=== PATIENT | male | born 1970 | race Caucasian/White ===

== ENCOUNTER → 2020-03-27 09:39 | Outpatient (BNVA) | payer OTHER, SELFPAY | PROVIDERS: PCP Internal Medicine; Referring Provider Internal Medicine; Visit Provider Internal Medicine Pulmonary Disease | DX: Z76.89 Persons encountering health services in other specified circumstances (principal) ==

== ENCOUNTER → 2020-05-26 09:47 | Outpatient (BNVA) | payer OTHER, SELFPAY | PROVIDERS: PCP Internal Medicine; Visit Provider Urology | DX: N13.9 Obstructive and reflux uropathy, unspecified (principal); Z79.899 Other long term (current) drug therapy | CPT/HCPCS: 81002 ==

== ENCOUNTER → 2020-06-21 12:50 | Outpatient (BNVA) | payer OTHER, SELFPAY | PROVIDERS: PCP Internal Medicine; Visit Provider Internal Medicine Pulmonary Disease ==

== ENCOUNTER → 2020-11-29 10:10 | Outpatient (BNVA) | payer OTHER, SELFPAY | PROVIDERS: PCP Internal Medicine; Visit Provider Internal Medicine Pulmonary Disease ==

== ENCOUNTER → 2021-01-30 14:37 | Outpatient (BNVA) | payer OTHER, SELFPAY | PROVIDERS: PCP Internal Medicine; Visit Provider Internal Medicine Pulmonary Disease ==

== ENCOUNTER → 2021-04-30 14:31 | Outpatient (BNVA) | payer OTHER, SELFPAY | PROVIDERS: PCP Internal Medicine; Visit Provider Internal Medicine Pulmonary Disease ==

== ENCOUNTER → 2021-07-24 10:50 | Outpatient (BNVA) | payer OTHER, SELFPAY | PROVIDERS: PCP Internal Medicine; Visit Provider Internal Medicine Pulmonary Disease | DX: J44.9 Chronic obstructive pulmonary disease, unspecified (principal); D86.9 Sarcoidosis, unspecified; F17.210 Nicotine dependence, cigarettes, uncomplicated; F12.90 Cannabis use, unspecified, uncomplicated | CPT/HCPCS: 99212 ==

== ENCOUNTER 2022-01-06 13:00 | Outpatient (REF) | payer OTHER, SELFPAY ==
--- NOTE | 2022-01-06 13:48 | PFT_ITS ---
INDICATION: COPD. SPIROMETRY: FEV1 to FVC of 80% with an FEV1 of 3.59 L, which is 82% predicted; an FVC of 4.5, which is 79% predicted. Post bronchodilators, the patient had a significant improvement in both the FVC and the FEV1. Also to note, the FEF25/75 decreased down to 59% predicted, suggesting of significant small airways disease. LUNG VOLUMES: Total lung capacity 95% predicted with a residual volume 122% predicted. DIFFUSION CAPACITY: DLCO 72% predicted. COMPARISONS: None. INTERPRETATION: No obstructive, nor restrictive ventilatory defects noted. Although, the patient had significant response to bronchodilators and significant evidence of small airways disease, which could be appreciated with asthma. Lung volumes are within normal limits except for increase in the residual volume suggestive of air trapping due to the small airways disease. There is also mild diffusion impairment. If asthma is in the differential, methacholine challenge may be helpful in assessing for hyper-reactive airways, otherwise clinical correlation warranted. MD KIRBY Amado/MODL / [id number]
== END 2022-01-06 13:01 | disposition home or self-care (01) ==
LOC: HO.RESP 13:00
PROVIDERS: PCP Internal Medicine; Visit Provider Internal Medicine Pulmonary Disease
DX: J44.9 Chronic obstructive pulmonary disease, unspecified (principal)
CPT/HCPCS: 94060; 94727; 94729

== ENCOUNTER 2022-01-08 10:37 | Outpatient (REF) | payer OTHER, SELFPAY ==
[2022-01-08 10:49] LABS: MANUAL DIFF FLAG NO
[2022-01-08 12:12] LABS: Basophils Absolute Auto 0.1 X10*3/uL (0.0-0.2); Basophils Percent Auto 0.6 % (0-2); Eosinophils Absolute Auto 0.4 X10*3/uL (0.0-0.4); Eosinophils Percent Auto 4.7 % (0-4); Hematocrit 46.8 % (42.0-52.0); Imm Gran Abs Auto 0.03 X10*3/uL (0.00-0.03); Imm Gran Pct Auto 0.4 % (0.0-0.4); Lymphocytes Percent Auto 35.5 % (20-40); Mean Corpuscular HGB Conc 32.1 g/dl (31.0-36.0); Mean Corpuscular Hemoglobin 28.9 pg (27.0-33.0); Mean Corpuscular Volume 90.2 fL (80.0-98.0); Mean Platelet Volume 10.8 fL (9.4-12.4); Monocytes Absolute Auto 0.5 X10*3/uL (0.1-1.2); Monocytes Percent Auto 6.2 % (2-11); Neutrophils Absolute Auto 4.5 x10*3/uL (2.0-8.3); Neutrophils Percent Auto 52.6 % (45-73); Platelet Count 281 X10*3/uL (160-400); Red Blood Count 5.19 X10*6/uL (4.60-5.80); Red Cell Distribution Width 13.3 % (11.0-16.0); White Blood Count 8.5 X10*3/uL (4.8-10.8)
== END 2022-01-08 10:38 | disposition home or self-care (01) ==
LOC: HO.LAB 10:37
PROVIDERS: PCP Internal Medicine; Visit Provider Internal Medicine Pulmonary Disease
DX: Z91.09 Other allergy status, other than to drugs and biological substances (principal)
CPT/HCPCS: 36415; 82785; 85025; 86003

== ENCOUNTER → 2022-07-16 09:36 | Outpatient (BNVA) | payer OTHER, SELFPAY | PROVIDERS: PCP Internal Medicine; Visit Provider Internal Medicine Pulmonary Disease | DX: Z13.89 Encounter for screening for other disorder (principal) ==

== ENCOUNTER → 2022-08-27 08:44 | Outpatient (BNVA) | payer OTHER, SELFPAY | PROVIDERS: PCP Internal Medicine; Visit Provider Internal Medicine Pulmonary Disease ==

== ENCOUNTER 2022-12-11 08:28 | Outpatient (AMB) | payer OTHER, SELFPAY ==
--- NOTE | 2022-12-11 08:47 | A.OFFVIS_ITS ---
Intake Vital Signs 12/11/22 08:48 Height 6 ft 2 in Weight 235 lb 14.314 oz BMI 30.3 BP 132/86 Blood Pressure Location Lt brachial Position Sitting Pulse 87 Pulse Source Pulse Oximeter Pulse Oximetry (%) 97 Oxygen Delivery Method Room Air Intake Visit Reasons: Asthma Allergies No Known Allergies Allergy (Verified 12/11/22 08:52) HPI Asthma HPI Details 52-year-old gentleman, active 40+ pack-year tobacco and marijuana smo ker, with underlying history of rheumatoid arthritis followed for COPD, asthma, environmental allergies, and sarcoidosis.? He continues to use Trelegy 100 and albuterol MDI, with reasonable control of his underlying symptoms.? He denies recent exacerbations. [facility] Social History (Updated 12/11/22 @ 08:53 by BEBE Wild) Patient Tobacco Use Status: Current everyday Tobacco user Tobacco use type: Cigarette Cigarette Packs Per Day: 1 Review of Systems Const Denies daytime sleepiness, Denies excessive sweating, Denies fatigue, Denies fever(s), Denies lethargy, Denies malaise, Denies night sweats, Denies snoring and Denies weight loss Eyes Denies blurry vision and Denies itchy eyes ENT Denies nasal congestion, Denies post nasal drip, Denies sinus pain, Denies sinus pressure and Denies other ( Thrush) Card Denies chest pain, Denies pedal edema, Denies dyspnea, Denies orthopnea and Denies paroxysmal nocturnal dyspnea Resp Denies cough, Denies hemoptysis, Denies excessive phlegm production, Denies dyspnea, Denies snoring and Denies wheezing GI Denies abdominal pain and Denies heartburn Musc Denies myalgias, Denies arthralgias and Denies joint swelling Skin/Breast Denies rash Neuro Denies memory loss and Denies seizure-like activity Psych Denies abnormal sleep pattern, Denies anxiety and Denies memory loss Endo Denies excessive sweating, Denies fatigue and Denies heat intolerance Papo/Lymph Denies easy bruising Aller/Immun Denies itchy eyes, Denies seasonal rhinorrhea and Denies wheezing Physical Exam Vital Signs: Last Vital Signs Pulse 87 12/11/22 08:48 BP 132/86 12/11/22 08:48 Pulse Ox 97 12/11/22 08:48 Oxygen Delivery Method Room Air 12/11/22 08:48 BMI result Body Mass Index 30.3 Const General: no acute distress and alert Nutritional Appearance: not obese Orientation/consciousness: Other orientation findings ( oriented) HEENT Head: Yes atraumatic Eyes General: appearance normal, both eyes and all related structures Sclerae: sclerae normal EOM: EOMs intact bilaterally Neck Neck: Yes supple Lymphatic: no lymphadenopathy noted Resp Effort & Inspection: normal respiratory effort and no use of accessory muscles Auscultation: clear to auscultation bilaterally Cardio Rate: regular rate Rhythm: regular rhythm Heart sounds: no gallops, no murmurs and no rubs Skin General skin exam: other ( warm) Extrem General: No clubbing, No cyanosis and No edema Assessment & Plan Assessment & Plan (1) Sarcoidosis: Code(s): D86.9 - Sarcoidosis, unspecified Plan: No recent exacerbations. Continue to monitor clinically. (2) Asthma: Code(s): J45.909 - Unspecified asthma, uncomplicated Plan: Well controlled on trilogy and albuterol MDI. Continue current regimen. (3) Environmental allergies: Code(s): Z91.09 - Other allergy status, other than to drugs and biological substances Plan: If started been controlled on inhaled corticosteroid, will consider starting on immunologic therapy. Coding Level of Care Code Est Pt Level 4 (73640) Diagnoses Sarcoidosis D86.9 Asthma J45.909 Environmental allergies Z91.09
[2022-12-11 08:48] VITALS: BP 132/86; PULSE 87; O2SAT 97; BMI 30.3
== END 2022-12-11 09:08 | disposition home or self-care (01) ==
PROVIDERS: PCP Internal Medicine; Visit Provider Internal Medicine Pulmonary Disease
DX: D86.9 Sarcoidosis, unspecified (principal); J45.909 Unspecified asthma, uncomplicated; Z91.09 Other allergy status, other than to drugs and biological substances
CPT/HCPCS: 99214

== ENCOUNTER → 2022-12-11 08:28 | Outpatient (BNVA) | payer OTHER, SELFPAY | PROVIDERS: PCP Internal Medicine; Visit Provider Internal Medicine Pulmonary Disease ==

== ENCOUNTER 2023-01-14 08:32 | Outpatient (AMB) | payer OTHER, SELFPAY ==
[2023-01-14 08:55] VITALS: BP 127/84; PULSE 101; O2SAT 96; BMI 30.7
--- NOTE | 2023-01-14 08:55 | MHC.OFFVIS ---
Intake Vital Signs 01/14/23 08:55 Height 6 ft 2 in Weight 239 lb 3.225 oz BMI 30.7 BP 127/84 Blood Pressure Location Lt brachial Position Sitting Pulse 101 H Pulse Source Doppler Pulse Oximetry (%) 96 Oxygen Delivery Method Room Air Intake Visit Reasons: Asthma Allergies No Known Allergies Allergy (Verified 01/14/23 08:57) HPI Asthma HPI Details 52-year-old gentleman, active 40+ pack-year tobacco and marijuana smoker, with underlying history of rheumatoid arthritis followed for COPD, asthma, environmental allergies, and sarcoidosis.? He continues to use Trelegy 100 and albuterol MDI, with reasonable control of his underlying symptoms.? He denies recent exacerbations. 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 [facility] Social History Patient Tobacco Use Status: Current everyday Tobacco user Tobacco use type: Cigarette Cigarette Packs Per Day: 1 Review of Systems Const Denies daytime sleepiness, Denies excessive sweating, Denies fatigue, Denies fever(s), Denies lethargy, Denies malaise, Denies night sweats, Denies snoring and Denies weight loss Eyes Denies blurry vision and Denies itchy eyes ENT Denies nasal congestion, Denies post nasal drip, Denies sinus pain, Denies sinus pressure and Denies other ( Thrush) Card Denies chest pain, Denies pedal edema, Denies dyspnea, Denies orthopnea and Denies paroxysmal nocturnal dyspnea Resp Denies cough, Denies hemoptysis, Denies excessive phlegm production, Denies dyspnea, Denies snoring and Denies wheezing GI Denies abdominal pain and Denies heartburn Musc Denies myalgias, Denies arthralgias and Denies joint swelling Skin/Breast Denies rash Neuro Denies memory loss and Denies seizure-like activity Psych Denies abnormal sleep pattern, Denies anxiety and Denies memory loss Endo Denies excessive sweating, Denies fatigue and Denies heat intolerance Papo/Lymph Denies easy bruising Aller/Immun Denies itchy eyes, Denies seasonal rhinorrhea and Denies wheezing Physical Exam Vital Signs: Last Vital Signs Pulse 101 H 01/14/23 08:55 BP 127/84 01/14/23 08:55 Pulse Ox 96 01/14/23 08:55 Oxygen Delivery Method Room Air 01/14/23 08:55 BMI result Body Mass Index 30.7 Const General: no acute distress and alert Nutritional Appearance: not obese Orientation/consciousness: Other orientation findings ( oriented) HEENT Head: Yes atraumatic Eyes General: appearance normal, both eyes and all related structures Sclerae: sclerae normal EOM: EOMs intact bilaterally Neck Neck: Yes supple Lymphatic: no lymphadenopathy noted Resp Effort & Inspection: normal respiratory effort and no use of accessory muscles Auscultation: clear to auscultation bilaterally Cardio Rate: regular rate Rhythm: regular rhythm Heart sounds: no gallops, no murmurs and no rubs Skin General skin exam: other ( warm) Extrem General: No clubbing, No cyanosis and No edema Assessment & Plan Assessment & Plan (1) Sarcoidosis: Code(s): D86.9 - Sarcoidosis, unspecified Plan: No recent exacerbations. Continue to monitor clinically. (2) Asthma: Code(s): J45.909 - Unspecified asthma, uncomplicated Plan: Well controlled on current regimen of Trelegy and albuterol MDI. Continue current regimen. (3) Environmental allergies: Code(s): Z91.09 - Other allergy status, other than to drugs and biological substances Plan: Well controlled on Dymista. If symptoms worsen, will consider immunologic therapy. Coding Level of Care Code Est Pt Level 4 (76680) Diagnoses Sarcoidosis D86.9 Asthma J45.909 Environmental allergies Z91.09
== END 2023-01-14 09:27 | disposition home or self-care (01) ==
PROVIDERS: PCP Internal Medicine; Visit Provider Internal Medicine Pulmonary Disease
DX: D86.9 Sarcoidosis, unspecified (principal); J45.909 Unspecified asthma, uncomplicated; Z91.09 Other allergy status, other than to drugs and biological substances
CPT/HCPCS: 99214

== ENCOUNTER → 2023-01-14 08:32 | Outpatient (BNVA) | payer OTHER, SELFPAY | PROVIDERS: PCP Internal Medicine; Visit Provider Internal Medicine Pulmonary Disease ==

== ENCOUNTER 2023-05-21 08:35 | Outpatient (AMB) | payer OTHER, SELFPAY ==
[2023-05-21 08:51] VITALS: BP 122/77; PULSE 96; O2SAT 95; BMI 30.2
--- NOTE | 2023-05-21 08:51 | A.OFFVIS_ITS ---
Intake Vital Signs 05/21/23 08:51 Height 6 ft 2 in Weight 235 lb BMI 30.2 BP 122/77 Blood Pressure Location Rt brachial Position Sitting Pulse 96 Pulse Source Doppler Pulse Oximetry (%) 95 Oxygen Delivery Method Room Air Intake Visit Reasons: Asthma Allergies No Known Allergies Allergy (Verified 05/21/23 08:57) HPI Asthma HPI Details 52-year-old gentleman, active 40+ pack-y ear tobacco and marijuana smoker, with underlying history of rheumatoid arthritis followed for COPD, asthma, environmental allergies, and sarcoidosis.? He continues to use Trelegy 100 and albuterol MDI, with reasonable control of his underlying symptoms.? Does complain of an acute exacerbation symptomatic with cough productive of brown sputum. [facility] Social History Patient Tobacco Use Status: Current everyday Tobacco user Tobacco use type: Cigarette Cigarette Packs Per Day: 1 Review of Systems Const Denies daytime sleepiness, Denies excessive sweating, Denies fatigue, Denies fever(s), Denies lethargy, Denies malaise, Denies night sweats, Denies snoring and Denies weight loss Eyes Denies blurry vision and Denies itchy eyes ENT Denies nasal congestion, Denies post nasal drip, Denies sinus pain, Denies sinus pressure and Denies other ( Thrush) Card Denies chest pain, Denies pedal edema, Denies dyspnea, Denies orthopnea and Denies paroxysmal nocturnal dyspnea Resp Reports cough, Denies hemoptysis, Reports excessive phlegm production, Denies dyspnea, Denies snoring and Denies wheezing GI Denies abdominal pain and Denies heartburn Musc Denies myalgias, Denies arthralgias and Denies joint swelling Skin/Breast Denies rash Neuro Denies memory loss and Denies seizure-like activity Psych Denies abnormal sleep pattern, Denies anxiety and Denies memory loss Endo Denies excessive sweating, Denies fatigue and Denies heat intolerance Papo/Lymph Denies easy bruising Aller/Immun Denies itchy eyes, Denies seasonal rhinorrhea and Denies wheezing Physical Exam Vital Signs: Last Vital Signs Pulse 96 05/21/23 08:51 BP 122/77 05/21/23 08:51 Pulse Ox 95 05/21/23 08:51 Oxygen Delivery Method Room Air 05/21/23 08:51 BMI result Body Mass Index 30.2 Const General: no acute distress and alert Nutritional Appearance: not obese Orientation/consciousness: Other orientation findings ( oriented) HEENT Head: Yes atraumatic Eyes General: appearance normal, both eyes and all related structures Sclerae: sclerae normal EOM: EOMs intact bilaterally Neck Neck: Yes supple Lymphatic: no lymphadenopathy noted Resp Effort & Inspection: normal respiratory effort and no use of accessory muscles Auscultation: clear to auscultation bilaterally Cardio Rate: regular rate Rhythm: regular rhythm Heart sounds: no gallops, no murmurs and no rubs Skin General skin exam: other ( warm) Extrem General: No clubbing, No cyanosis and No edema Assessment & Plan Assessment & Plan (1) Sarcoidosis: Code(s): D86.9 - Sarcoidosis, unspecified Plan: No recent exacerbations. Continue to monitor clinically. (2) Asthma: Code(s): J45.909 - Unspecified asthma, uncomplicated Plan: Baseline controlled on trilogy and albuterol MDI. Continue current regimen. Now with bronchitic exacerbation. Will treat with a course of Levaquin. (3) Environmental allergies: Code(s): Z91.09 - Other allergy status, other than to drugs and biological substances Plan: At this time patient is not interested in immunologic therapy. Continue on Dymista. Medications: New levofloxacin 750 mg PO DAILY 7 tabs 0RF Coding Level of Care Code Est Pt Level 4 (94283) Diagnoses Sarcoidosis D86.9 Asthma J45.909 Environmental allergies Z91.09
== END 2023-05-21 09:15 | disposition home or self-care (01) ==
PROVIDERS: PCP Internal Medicine; Visit Provider Internal Medicine Pulmonary Disease
DX: D86.9 Sarcoidosis, unspecified (principal); J45.909 Unspecified asthma, uncomplicated; Z91.09 Other allergy status, other than to drugs and biological substances
CPT/HCPCS: 99214

== ENCOUNTER → 2023-05-21 08:35 | Outpatient (BNVA) | payer OTHER, SELFPAY | PROVIDERS: PCP Internal Medicine; Visit Provider Internal Medicine Pulmonary Disease ==

== ENCOUNTER 2023-07-01 08:40 | Outpatient (AMB) | payer OTHER, SELFPAY ==
--- NOTE | 2023-07-01 09:02 | A.OFFVIS_ITS ---
Intake Vital Signs 07/01/23 09:04 Height 6 ft 2 in Weight 238 lb 1.588 oz BMI 30.6 BP 140/87 H Blood Pressure Location Rt brachial Pulse 99 Pulse Source Doppler Pulse Oximetry (%) 95 Oxygen Delivery Method Room Air Intake Visit Reasons: Asthma Allergies No Known Allergies Allergy (Verified 07/01/23 09:09) HPI Asthma HPI Details 53-year-old gentleman, active 40+ pack-y ear tobacco and marijuana smoker, with underlying history of rheumatoid arthritis followed for COPD, asthma, environmental allergies, and sarcoidosis.? He continues to use Trelegy 100 and albuterol MDI, with reasonable control of his underlying symptoms. Recent bronchitic exacerbation has resolved. Now he is essentially at baseline. [facility] Social History Patient Tobacco Use Status: Current everyday Tobacco user Tobacco use type: Cigarette Cigarette Packs Per Day: 1 Review of Systems Const Denies daytime sleepiness, Denies excessive sweating, Denies fatigue, Denies fever(s), Denies lethargy, Denies malaise, Denies night sweats, Denies snoring and Denies weight loss Eyes Denies blurry vision and Denies itchy eyes ENT Denies nasal congestion, Denies post nasal drip, Denies sinus pain, Denies sinus pressure and Denies other ( Thrush) Card Denies chest pain, Denies pedal edema, Denies dyspnea, Denies orthopnea and Denies paroxysmal nocturnal dyspnea Resp Denies cough, Denies hemoptysis, Denies excessive phlegm production, Denies dyspnea, Denies snoring and Denies wheezing GI Denies abdominal pain and Denies heartburn Musc Denies myalgias, Denies arthralgias and Denies joint swelling Skin/Breast Denies rash Neuro Denies memory loss and Denies seizure-like activity Psych Denies abnormal sleep pattern, Denies anxiety and Denies memory loss Endo Denies excessive sweating, Denies fatigue and Denies heat intolerance Papo/Lymph Denies easy bruising Aller/Immun Denies itchy eyes, Denies seasonal rhinorrhea and Denies wheezing Physical Exam Vital Signs: Last Vital Signs Pulse 99 07/01/23 09:04 BP 140/87 H 07/01/23 09:04 Pulse Ox 95 07/01/23 09:04 Oxygen Delivery Method Room Air 07/01/23 09:04 BMI result Body Mass Index 30.6 Const General: no acute distress and alert Nutritional Appearance: not obese Orientation/consciousness: Other orientation findings ( oriented) HEENT Head: Yes atraumatic Eyes General: appearance normal, both eyes and all related structures Sclerae: sclerae normal EOM: EOMs intact bilaterally Neck Neck: Yes supple Lymphatic: no lymphadenopathy noted Resp Effort & Inspection: normal respiratory effort and no use of accessory muscles Auscultation: clear to auscultation bilaterally Cardio Rate: regular rate Rhythm: regular rhythm Heart sounds: no gallops, no murmurs and no rubs Skin General skin exam: other ( warm) Extrem General: No clubbing, No cyanosis and No edema Assessment & Plan Assessment & Plan (1) Sarcoidosis: Code(s): D86.9 - Sarcoidosis, unspecified Plan: No recent exacerbations. Continue to monitor clinically. (2) Asthma: Code(s): J45.909 - Unspecified asthma, uncomplicated Plan: Well controlled on Trelegy and albuterol MDI. Continue current regimen. (3) Environmental allergies: Code(s): Z91.09 - Other allergy status, other than to drugs and biological substances Plan: Reasonable control on Dymista. Continue current regimen. Medications: Refilled azelastine-fluticasone 137-50 mcg/spray administer into each nostril 1 spray intranasal BID 23 grams 3RF 30 days Coding Level of Care Code Est Pt Level 4 (88359) Diagnoses Sarcoidosis D86.9 Asthma J45.909 Environmental allergies Z91.09
[2023-07-01 09:04] VITALS: BP 140/87; PULSE 99; O2SAT 95; BMI 30.6
== END 2023-07-01 09:16 | disposition home or self-care (01) ==
PROVIDERS: PCP Internal Medicine; Visit Provider Internal Medicine Pulmonary Disease
DX: D86.9 Sarcoidosis, unspecified (principal); J45.909 Unspecified asthma, uncomplicated; Z91.09 Other allergy status, other than to drugs and biological substances
CPT/HCPCS: 99214

== ENCOUNTER → 2023-07-01 08:40 | Outpatient (BNVA) | payer OTHER, SELFPAY | PROVIDERS: PCP Internal Medicine; Visit Provider Internal Medicine Pulmonary Disease ==

== ENCOUNTER 2023-07-18 11:50 | Emergency (ER) | payer OTHER, SELFPAY ==
--- NOTE | ~2023-07-18 | XR_ITS ---
EXAMINATION: XR FINGER, RIGHT CLINICAL INFORMATION: Infected finger COMPARISON: None available. TECHNIQUE: Three views of the right third. FINDINGS: Bone alignment is normal. No fracture or dislocation. No evidence of osteomyelitis. Normal joint spaces. There is soft tissue swelling of the ulnar and dorsal third finger. There is a small 1 mm radiopaque density that projects over the ulnar and dorsal soft tissues adjacent to the distal phalanx concerning for possible soft tissue foreign body. XR/XR finger RT min 2V IMPRESSION: Soft tissue swelling of the third finger and question small soft tissue foreign body.
--- NOTE | 2023-07-18 11:53 | ED.SKABFB ---
HPI - Skin/Abscess/Foreign Bdy General Chief complaint: Wound/Laceration Stated complaint: swollen brusied finger Time Seen by Provider: 07/18/23 13:51 Source: patient Mode of arrival: ambulatory History of Present Illness HPI narrative: 53-year-old male who presents with right middle finger pain and swelling after it began on Friday after returning from [place], he went to an urgent care where he states that it was drained and he was started on an antibiotic but his finger has progressively become worse. Related Data Home Medications Medication Instructions Recorded Confirmed citalopram 10 mg tablet 10 mg PO DAILY 03/27/20 03/27/20 lisinopril 10 mg tablet 10 mg PO DAILY 03/27/20 03/27/20 Previous Rx's Medication Instructions Recorded fluticasone fur. 100 mcg-umeclid 1 ea PO DAILY #60 ea 02/17/23 62.5 mcg-vilant 25 mcg inhalat.powder (Trelegy Ellipta) levofloxacin 750 mg tablet 750 mg PO DAILY #7 tabs 05/21/23 albuterol sulfate 90 mcg/actuation 1 puff inhalation QID #6.7 ea 06/12/23 aerosol inhaler azelastine 137 mcg-fluticasone 50 1 spray intranasal BID 30 days #23 07/01/23 mcg/spray nasal spray grams amoxicillin 875 mg-potassium 1 tab PO BID 5 days #10 tabs 07/18/23 clavulanate 125 mg tablet Allergies Allergy/AdvReac Type Severity Reaction Status Date / Time No Known Allergies Allergy Verified 07/01/23 09:09 Review of Systems Review of Systems: Pertinent positives and negatives as stated in HPI [facility] Past Medical History Source: nursing notes reviewed Social History Social History Patient Tobacco Use Status: Current everyday Tobacco user Tobacco use type: Cigarette Cigarette Packs Per Day: 1 Smoked in Last 30 Days: Yes Use of substances other than those prescribed or required for medical reasons: Yes Substance Use Type: Marijuana Substance Use Frequency: Daily Advance Directives: Yes Advance Directives Information Provided: Yes Advance Directives on File: No Physical Exam Vital Signs: Vital Signs: Last Vital Signs Temp 99.5 F 07/18/23 13:46 Pulse 104 H 07/18/23 13:46 Resp 18 07/18/23 13:46 BP 155/98 H 07/18/23 13:46 Pulse Ox 95 07/18/23 13:46 O2 Del Method Room Air 07/18/23 13:46 BMI result Body Mass Index 29.8 VITAL SIGNS: Reviewed. GENERAL: Well developed, well nourished, in no acute distress. HEAD: Normocephalic/atraumatic EYES: PERRLA, EOMI LUNGS: Normal breath sounds. No adventitious sounds or accessory muscle use. SpO2<95> CARDIOVASCULAR: Regular rate and rhythm without noted murmurs ABDOMEN: Soft, non-tender, non-distended with bowel sounds. MUSCULOSKELETAL: No tenderness, deformities, or effusions noted on gross inspection. EXTREMITIES: No cyanosis, clubbing or edema. RIGHT MIDDLE FINGER: SKIN: Inspection of the skin reveals no rashes NEUROLOGIC: Alert and oriented x 4. Strength and sensation to light touch were grossly intact x 4. Course Course Course Narrative: This is an RME: Additional HPI, ROS, PE not included below will be deferred to primary provider. Patient is a 53-year-old male left-hand dominant who presents emergency department with referral from his primary care doctor's office. He presented there for re-evaluation of a right 3rd finger infection. Reportedly was seen at urgent care 3 days ago for paronychia, digital block and attempted drainage, was placed on Keflex but has worsened. Extensive swelling bruising, finger held in near complete extension, unable to flex. Plan: Labs, XR Medical Decision Making Medical Decision Making [facility] Narrative: 53-year-old male with history and clinical presentation of infected paronychia, cephalexin not able to control infection, digital block placed, small incision on the lateral aspect with copious drainage, re-application dressing and discharged on Augmentin. Patient received initial analgesics and antibiotics here in the emergency room. I reviewed all investigations and hematologic indices negative for leukocytosis/anemia or thrombocytopenia. Chemistry indices negative for SABINE/electrolyte or liver enzyme derangements. X-ray negative for bony or joint abnormality but demonstrates soft tissue swelling Differential Diagnosis Differential Diagnoses: The differential diagnosis associated with the presentation includes Please see the discussion above Admission/Observation Consideration of admission/observation: Escalation of care including admission/observation considered Please see the discussion above Lab Data [facility] Lab Attestation statement: I reviewed the patient's lab results. Please see the discussion above 07/18/23 12:37 07/18/23 12:37 Labs: Lab Results 07/18/23 07/18/23 Range/Units 12:37 14:35 WBC 10.4 (4.8-10.8) X10*3/uL RBC 5.71 (4.60-5.80) X10*6/uL Hgb 17.0 (14.0-18.0) g/dl Hct 51.4 (42.0-52.0) % MCV 90.0 (80.0-98.0) fL MCH 29.8 (27.0-33.0) pg MCHC 33.1 (31.0-36.0) g/dl RDW 13.7 (11.0-16.0) % Plt Count 261 (160-400) X10*3/uL MPV 10.1 (9.4-12.4) fL Immature Gran % (Auto) 0.3 (0.0-0.4) % Neut % (Auto) 77.3 H (45-73) % Lymph % (Auto) 13.3 L (20-40) % Rincon % (Auto) 8.0 (2-11) % Eos % (Auto) 0.7 (0-4) % Baso % (Auto) 0.4 (0-2) % Lymph # (Auto) 1.4 (1.2-4.9) X10*3/uL Rincon # (Auto) 0.8 (0.1-1.2) X10*3/uL Eos # (Auto) 0.1 (0.0-0.4) X10*3/uL Baso # (Auto) 0.0 (0.0-0.2) X10*3/uL Abs Immat Gran (auto) 0.03 (0.00-0.03) X10*3/uL Absolute Neuts (auto) 8.0 (2.0-8.3) x10*3/uL Absolute Nucleated RBC 0.000 (0.0-0.012) X10*3/uL Nucleated RBC % (auto) 0.0 (0.0-0.2) /100WBC Sodium 137 (135-145) mmol/L Potassium 3.9 (3.3-5.1) mmol/L Chloride 101 (96-108) mmol/L Carbon Dioxide 26 (22-29) mmol/L Anion Gap 14 (12-20) BUN 13 (9-16) mg/dL Creatinine 1.06 (0.5-1.4) mg/dL Estim Creat Clear Calc 103.0 Estimated GFR > 60 Random Glucose 123 H (60-115) mg/dL Lactic Acid 1.0 (0.5-2.0) mmol/L Calcium 9.7 (8.4-10.2) mg/dL Total Bilirubin 0.4 (0.0-1.0) mg/dL AST 12 (5-37) U/L ALT 15 (0-40) U/L Alkaline Phosphatase 82 (39-117) U/L Total Protein 7.7 (6.5-8.0) g/dL Albumin 4.4 (3.5-5.0) g/dL Radiology Impression Discussion of test interpretation with radiology: I have reviewed the radiologist's reading. Radiologist Impression: Please see the discussion above Procedures Abscess I/D Site: upper extremity Side (if applicable): right Local Anesthetic: lidocaine 1% Amount of anesthesia used (mL): 5 Technique: incised with blade Amount of fluid expressed (mL): 15 Sent for culture/gram staining?: No Packing used?: none Discharge Plan Discharge Clinical Impression: Finger infection Patient Disposition: Home, Self-Care Instructions: Paronychia (ED) Additional Instructions: 1. I have switched your antibiotics to Augmentin, twice a day, for 5 days. You should stop taking the other antibiotic that you were prescribed. 2. Follow-up with your primary care doctor the 1st part of next week. Return to the ER if you have any worsening over the next 48 hours. Prescriptions: New amoxicillin-pot clavulanate 875-125 mg tablet 1 tab PO BID 5 Days Qty: 10 0RF No Action Trelegy Ellipta 100-62.5-25 mcg blister with device 1 ea PO DAILY Qty: 60 6RF albuterol sulfate 90 mcg/actuation HFA aerosol inhaler 1 puff inhalation QID Qty: 6.7 1RF lisinopril 10 mg tablet 10 mg PO DAILY citalopram 10 mg tablet 10 mg PO DAILY levofloxacin 750 mg tablet 750 mg PO DAILY Qty: 7 0RF azelastine-fluticasone 137-50 mcg/spray spray,non-aerosol 1 spray intranasal BID 30 Days Qty: 23 3RF Rx Instructions: administer into each nostril Referrals: Juan Francisco Herndon MD [Primary Care Provider] -
[2023-07-18 11:55] VITALS: BP 128/89; PULSE 109; RESP 17; TEMP 37; O2SAT 97; BMI 29.8
[2023-07-18 12:59] LABS: MANUAL DIFF FLAG NO
[2023-07-18 13:04] LABS: Basophils Percent Auto 0.4 % (0-2); Eosinophils Absolute Auto 0.1 X10*3/uL (0.0-0.4); Eosinophils Percent Auto 0.7 % (0-4); Hematocrit 51.4 % (42.0-52.0); Imm Gran Abs Auto 0.03 X10*3/uL (0.00-0.03); Imm Gran Pct Auto 0.3 % (0.0-0.4); Lymphocytes Absolute Auto 1.4 X10*3/uL (1.2-4.9); Lymphocytes Percent Auto 13.3 % (20-40); Mean Corpuscular HGB Conc 33.1 g/dl (31.0-36.0); Mean Corpuscular Hemoglobin 29.8 pg (27.0-33.0); Mean Platelet Volume 10.1 fL (9.4-12.4); Monocytes Absolute Auto 0.8 X10*3/uL (0.1-1.2); Neutrophils Percent Auto 77.3 % (45-73); Platelet Count 261 X10*3/uL (160-400); Red Blood Count 5.71 X10*6/uL (4.60-5.80); Red Cell Distribution Width 13.7 % (11.0-16.0); White Blood Count 10.4 X10*3/uL (4.8-10.8)
[2023-07-18 13:17] LABS: Alanine Aminotransferase 15 U/L (0-40); Albumin Level 4.4 g/dL (3.5-5.0); Alkaline Phosphatase 82 U/L (39-117); Anion Gap 14 (12-20); Aspartate Amino Transferase 12 U/L (5-37); Bilirubin Total 0.4 mg/dL (0.0-1.0); Blood Urea Nitrogen 13 mg/dL (9-16); Calcium 9.7 mg/dL (8.4-10.2); Carbon Dioxide 26 mmol/L (22-29); Chloride 101 mmol/L (96-108); Estimated Glomerular Filt Rate > 60; Glucose Random 123 mg/dL (60-115); Potassium 3.9 mmol/L (3.3-5.1); Sodium 137 mmol/L (135-145); Total Protein 7.7 g/dL (6.5-8.0)
[2023-07-18 13:46] VITALS: BP 155/98; PULSE 104; RESP 18; TEMP 37.5; O2SAT 95
[2023-07-18] MEDS: Ibuprofen 400 MG TABLET PO (15:22)
[2023-07-18] MEDS: Amoxicillin/Potassium Clav 875 MG TABLET PO (15:22)
[2023-07-18] MEDS: Acetaminophen 325 MG TABLET 975 MG PO (15:22)
[2023-07-18 15:24] VITALS: BP 161/101; PULSE 101; RESP 20; TEMP 36.6; O2SAT 96
== END 2023-07-18 15:25 | disposition home or self-care (01) ==
PROVIDERS: Nurse Practitioner Family; Emergency Provider Student in an Organized Health Care Education/Training Program; PCP Internal Medicine
DX: L03.011 Cellulitis of right finger (principal); M79.644 Pain in right finger(s)
CPT/HCPCS: 10061; 36415; 73140; 80053; 83605; 85025; 87040; 99283; 99284

== ENCOUNTER 2023-10-01 08:23 | Outpatient (AMB) | payer OTHER, SELFPAY ==
[2023-10-01 08:44] VITALS: BP 118/77; PULSE 101; O2SAT 97; BMI 30.3
--- NOTE | 2023-10-01 08:44 | A.OFFVIS_ITS ---
Vital Signs 10/01/23 08:44 Height 6 ft 2 in Weight 235 lb 14.314 oz BMI 30.3 BP 118/77 Blood Pressure Location Rt brachial Position Sitting Pulse 101 H Pulse Source Doppler Pulse Oximetry (%) 97 Oxygen Delivery Method Room Air Intake Visit Reasons: Asthma Allergies No Known Allergies Allergy (Verified 07/01/23 09:09) HPI HPI Asthma: Details: 53-year-old gentleman, active 40+ pack-year tobacco and marijuana smoker, with underlying history of rheumatoid arthritis followed for COPD, asthma, environmental allergies, and sarcoidosis.? He continues to use Trelegy 100 and albuterol MDI, with reasonable control of his underlying symptoms. He denies recent exacerbations. [facility] Social History Patient Tobacco Use Status: Current everyday Tobacco user Tobacco use type: Cigarette Cigarette Packs Per Day: 1 Substance Use Type: Marijuana Review of Systems Const Denies daytime sleepiness, Denies excessive sweating, Denies fatigue, Denies fever(s), Denies lethargy, Denies malaise, Denies night sweats, Denies snoring and Denies weight loss Eyes Denies blurry vision and Denies itchy eyes ENT Denies nasal congestion, Denies post nasal drip, Denies sinus pain, Denies sinus pressure and Denies other ( Thrush) Card Denies chest pain, Denies pedal edema, Denies dyspnea, Denies orthopnea and Denies paroxysmal nocturnal dyspnea Resp Denies cough, Denies hemoptysis, Denies excessive phlegm production, Denies dyspnea, Denies snoring and Denies wheezing GI Denies abdominal pain and Denies heartburn Musc Denies myalgias, Denies arthralgias and Denies joint swelling Skin/Breast Denies rash Neuro Denies memory loss and Denies seizure-like activity Psych Denies abnormal sleep pattern, Denies anxiety and Denies memory loss Endo Denies excessive sweating, Denies fatigue and Denies heat intolerance Papo/Lymph Denies easy bruising Aller/Immun Denies itchy eyes, Denies seasonal rhinorrhea and Denies wheezing Physical Exam Vital Signs: Last Vital Signs Pulse 101 H 10/01/23 08:44 BP 118/77 10/01/23 08:44 Pulse Ox 97 10/01/23 08:44 Oxygen Delivery Method Room Air 10/01/23 08:44 BMI result Body Mass Index 30.3 Const General: no acute distress and alert Nutritional Appearance: not obese Orientation/consciousness: Other orientation findings ( oriented) HEENT Head: Yes atraumatic Eyes General: appearance normal, both eyes and all related structures Sclerae: sclerae normal EOM: EOMs intact bilaterally Neck Neck: Yes supple Lymphatic: no lymphadenopathy noted Resp Effort & Inspection: normal respiratory effort and no use of accessory muscles Auscultation: clear to auscultation bilaterally Cardio Rate: regular rate Rhythm: regular rhythm Heart sounds: no gallops, no murmurs and no rubs Skin General skin exam: other ( warm) Extrem General: No clubbing, No cyanosis and No edema Assessment & Plan Assessment & Plan (1) Sarcoidosis: Code(s): D86.9 - Sarcoidosis, unspecified Category: Medical Plan: No recent exacerbations. Continue to monitor clinically. (2) Asthma: Code(s): J45.909 - Unspecified asthma, uncomplicated Category: Medical Plan: Well controlled on Trelegy and albuterol MDI. Continue current regimen. (3) Environmental allergies: Code(s): Z91.09 - Other allergy status, other than to drugs and biological substances Category: Medical Plan: Well controlled on azelastine. Continue current regimen. Orders: Orders CT lung screening 01/01/24 Z87.891 - Personal history of nicotine dependence Medications: Refilled azelastine-fluticasone 137-50 mcg/spray administer into each nostril 1 spray intranasal BID 23 grams 3RF 30 days wnzbxucogim-vdrzrjkct-yxsysroj 100-62.5-25 mcg (Trelegy Ellipta) 1 ea PO DAILY 60 ea 6RF Coding Level of Care Code Est Pt Level 4 (18657) Diagnoses Sarcoidosis D86.9 Asthma J45.909 Environmental allergies Z91.09
== END 2023-10-01 08:58 | disposition home or self-care (01) ==
PROVIDERS: PCP Internal Medicine; Referring Provider Internal Medicine; Visit Provider Internal Medicine Pulmonary Disease
DX: D86.9 Sarcoidosis, unspecified (principal); J45.909 Unspecified asthma, uncomplicated; Z91.09 Other allergy status, other than to drugs and biological substances
CPT/HCPCS: 99214

== ENCOUNTER → 2023-10-01 08:23 | Outpatient (BNVA) | payer OTHER, SELFPAY | PROVIDERS: PCP Internal Medicine; Visit Provider Internal Medicine Pulmonary Disease ==

== ENCOUNTER 2024-01-01 06:43 | Outpatient (REF) | payer OTHER, SELFPAY ==
--- NOTE | ~2024-01-01 | CT_ITS ---
EXAMINATION: CT LOW-DOSE SCREENING CHEST WITHOUT CONTRAST CLINICAL INFORMATION: Personal history of nicotine dependence. The patient is a current smoker with a 40 pack-year history of smoking. COMPARISON: CT chest 12/15/2019. TECHNIQUE: Multidetector volumetric CT imaging of the chest is performed on a Siemens SOMATOM Definition scanner without contrast using low dose technique. Additional 2D coronal and sagittal reformatted images and axial 3D maximum intensity projection (MIP) images are generated on the CT workstation. This CT examination was performed using dose optimization techniques as appropriate, variously including the following: *Automated exposure control. *Adjustment of mA and/or kV according to patient size (this includes techniques or standardized protocols for targeted exams where dose is matched to indication/reason for exam; i.e. extremities or head). *Use of iterative reconstruction technique. TOTAL EXAM DLP: 70 mGy-cm. CTDIvol: 1.88 mGy. FINDINGS: PULMONARY NODULES: No suspicious pulmonary nodules. LUNGS: Lungs bilaterally symmetrically expanded. Mild biapical pleural-parenchymal scarring is noted without change from prior. There is mild emphysema and bronchial thickening without bronchiectasis. No effusion or pneumothorax. Central airways patent. MEDIASTINUM: No mediastinal, hilar or axillary adenopathy or free fluid collection. CORONARY ARTERY CALCIFICATION: None visualized on this study. THYROID GLAND: Unremarkable to the extent seen. CARDIOVASCULAR STRUCTURES: Aortic and heart size normal. No pericardial effusion. CHEST WALL/AXILLA: Unremarkable. UPPER ABDOMEN: Included portions of the solid organs in the upper abdomen unremarkable on noncontrast imaging. OSSEOUS STRUCTURES: No suspicious focal findings. CT/CT lung screening IMPRESSION: 1. No evidence of pulmonary malignancy. 2. Mild emphysema and bronchial thickening. ASSESSMENT: 1. Lung-RADS Category 1: Negative. There are no nodules or there are definitely benign nodules. N/A 2. Lung-RADS Category S: Negative. There are no clinically significant or potentially clinically significant findings not related to the lungs requiring urgent additional evaluation. RECOMMENDATION: Continued routine annual low-dose CT lung screening in 1 year is recommended. An order for CT CHEST LOW DOSE CANCER SCREENING ([id number]) can be placed. Electronically signed by: Geo Diop MD 03/02/2024 10:29 PM [facility]
== END 2024-01-01 06:44 | disposition home or self-care (01) ==
LOC: HO.CT 06:43
PROVIDERS: PCP Internal Medicine; Visit Provider Internal Medicine Pulmonary Disease
DX: Z12.2 Encounter for screening for malignant neoplasm of respiratory organs (principal); Z87.891 Personal history of nicotine dependence
CPT/HCPCS: 71271

== ENCOUNTER 2024-01-06 08:33 | Outpatient (AMB) | payer OTHER, SELFPAY ==
[2024-01-06 08:35] VITALS: BP 122/82; PULSE 107; O2SAT 95; BMI 30.6
--- NOTE | 2024-01-06 08:35 | MHC.OFFVIS ---
Vital Signs 01/06/24 08:35 Height 6 ft 2 in Weight 238 lb BMI 30.6 BP 122/82 Blood Pressure Location Rt brachial Position Sitting Pulse 107 H Pulse Source Doppler Pulse Oximetry (%) 95 Oxygen Delivery Method Room Air Intake Visit Reasons: Asthma Allergies No Known Allergies Allergy (Verified 07/01/23 09:09) HPI HPI Asthma: Details: 53-year-old gentleman, active 40+ pack-year tobacco and marijuana smoker, with underlying history of rheumatoid arthritis followed for COPD, asthma, environmental allergies, and sarcoidosis.? He continues to use Trelegy 100 and albuterol MDI, with reasonable control of his underlying symptoms. He denies recent exacerbations. His CT chest for lung cancer screening is not ready for this appointment, but on my review does not have worrisome nodules. [facility] Social History Patient Tobacco Use Status: Current everyday Tobacco user Tobacco use type: Cigarette Cigarette Packs Per Day: 1 Substance Use Type: Marijuana Review of Systems Const Denies daytime sleepiness, Denies excessive sweating, Denies fatigue, Denies fever(s), Denies lethargy, Denies malaise, Denies night sweats, Denies snoring and Denies weight loss Eyes Denies blurry vision and Denies itchy eyes ENT Denies nasal congestion, Denies post nasal drip, Denies sinus pain, Denies sinus pressure and Denies other ( Thrush) Card Denies chest pain, Denies pedal edema, Denies dyspnea, Denies orthopnea and Denies paroxysmal nocturnal dyspnea Resp Denies cough, Denies hemoptysis, Denies excessive phlegm production, Denies dyspnea, Denies snoring and Denies wheezing GI Denies abdominal pain and Denies heartburn Musc Denies myalgias, Denies arthralgias and Denies joint swelling Skin/Breast Denies rash Neuro Denies memory loss and Denies seizure-like activity Psych Denies abnormal sleep pattern, Denies anxiety and Denies memory loss Endo Denies excessive sweating, Denies fatigue and Denies heat intolerance Papo/Lymph Denies easy bruising Aller/Immun Denies itchy eyes, Denies seasonal rhinorrhea and Denies wheezing Physical Exam Vital Signs: Last Vital Signs Pulse 107 H 01/06/24 08:35 BP 122/82 01/06/24 08:35 Pulse Ox 95 01/06/24 08:35 Oxygen Delivery Method Room Air 01/06/24 08:35 BMI result Body Mass Index 30.6 Const General: no acute distress and alert Nutritional Appearance: not obese Orientation/consciousness: Other orientation findings ( oriented) HEENT Head: Yes atraumatic Eyes General: appearance normal, both eyes and all related structures Sclerae: sclerae normal EOM: EOMs intact bilaterally Neck Neck: Yes supple Lymphatic: no lymphadenopathy noted Resp Effort & Inspection: normal respiratory effort and no use of accessory muscles Auscultation: clear to auscultation bilaterally Cardio Rate: regular rate Rhythm: regular rhythm Heart sounds: no gallops, no murmurs and no rubs Skin General skin exam: other ( warm) Extrem General: No clubbing, No cyanosis and No edema Assessment & Plan Assessment & Plan (1) Sarcoidosis: Code(s): D86.9 - Sarcoidosis, unspecified Category: Medical Plan: Essentially clinically silent, continue to monitor clinically. (2) Asthma: Code(s): J45.909 - Unspecified asthma, uncomplicated Category: Medical Plan: Well controlled on Trelegy and albuterol MDI. Continue current regimen. (3) Personal history of nicotine dependence: Code(s): Z87.891 - Personal history of nicotine dependence Category: Medical Plan: Lung cancer screening CT chest read is pending. On my review no worrisome nodules. Continue with yearly screening. Coding Level of Care Code Est Pt Level 4 (63112) Diagnoses Sarcoidosis D86.9 Asthma J45.909 Personal history of nicotine dependence Z87.891
== END 2024-01-06 08:52 | disposition home or self-care (01) ==
PROVIDERS: PCP Internal Medicine; Visit Provider Internal Medicine Pulmonary Disease
DX: D86.9 Sarcoidosis, unspecified (principal); J45.909 Unspecified asthma, uncomplicated; Z87.891 Personal history of nicotine dependence
CPT/HCPCS: 99214

== ENCOUNTER → 2024-01-06 08:33 | Outpatient (BNVA) | payer OTHER, SELFPAY | PROVIDERS: PCP Internal Medicine; Visit Provider Internal Medicine Pulmonary Disease ==

== ENCOUNTER 2024-06-10 11:17 | Outpatient (AMB) | payer OTHER, SELFPAY ==
--- NOTE | 2024-06-10 11:24 | MHC.OFFVIS ---
Vital Signs 06/10/24 11:25 Height 6 ft 2 in Weight 238 lb BMI 30.6 BP 122/78 Blood Pressure Location Rt brachial Position Sitting Pulse 97 Pulse Source Doppler Pulse Oximetry (%) 97 Oxygen Delivery Method Room Air Intake Visit Reasons: Asthma Allergies No Known Allergies Allergy (Verified 07/01/23 09:09) HPI HPI Asthma: Details: 54-year-old gentleman, active 40+ pack-year tobacco and marijuana smoker, with underlying history of rheumatoid arthritis followed for COPD, asthma, environmental allergies, and sarcoidosis.? He continues to use Trelegy 100 and albuterol MDI, with reasonable control of his underlying symptoms. He denies recent exacerbations. His CT chest for lung cancer screening showed no worrisome nodules. Today he is complaining of worsening allergic rhinitis symptoms. [facility] Social History Patient Tobacco Use Status: Current everyday Tobacco user Tobacco use type: Cigarette Cigarette Packs Per Day: 1 Substance Use Type: Marijuana Review of Systems Const Denies daytime sleepiness, Denies excessive sweating, Denies fatigue, Denies fever(s), Denies lethargy, Denies malaise, Denies night sweats, Denies snoring and Denies weight loss Eyes Denies blurry vision and Denies itchy eyes ENT Reports nasal congestion, Reports post nasal drip, Denies sinus pain, Denies sinus pressure and Denies other ( Thrush) Card Denies chest pain, Denies pedal edema, Denies dyspnea, Denies orthopnea and Denies paroxysmal nocturnal dyspnea Resp Denies cough, Denies hemoptysis, Denies excessive phlegm production, Denies dyspnea, Denies snoring and Denies wheezing GI Denies abdominal pain and Denies heartburn Musc Denies myalgias, Denies arthralgias and Denies joint swelling Skin/Breast Denies rash Neuro Denies memory loss and Denies seizure-like activity Psych Denies abnormal sleep pattern, Denies anxiety and Denies memory loss Endo Denies excessive sweating, Denies fatigue and Denies heat intolerance Papo/Lymph Denies easy bruising Aller/Immun Denies itchy eyes, Denies seasonal rhinorrhea and Denies wheezing Physical Exam Vital Signs: Last Vital Signs Pulse 97 06/10/24 11:25 BP 122/78 06/10/24 11:25 Pulse Ox 97 06/10/24 11:25 Oxygen Delivery Method Room Air 06/10/24 11:25 BMI result Body Mass Index 30.6 Const General: no acute distress and alert Nutritional Appearance: not obese Orientation/consciousness: Other orientation findings ( oriented) HEENT Head: Yes atraumatic Eyes General: appearance normal, both eyes and all related structures Sclerae: sclerae normal EOM: EOMs intact bilaterally Neck Neck: Yes supple Lymphatic: no lymphadenopathy noted Resp Effort & Inspection: normal respiratory effort and no use of accessory muscles Auscultation: clear to auscultation bilaterally Cardio Rate: regular rate Rhythm: regular rhythm Heart sounds: no gallops, no murmurs and no rubs Skin General skin exam: other ( warm) Extrem General: No clubbing, No cyanosis and No edema Assessment & Plan Assessment & Plan (1) Sarcoidosis: Code(s): D86.9 - Sarcoidosis, unspecified Category: Medical Plan: Clinically silent, continue to monitor clinically. (2) Asthma: Code(s): J45.909 - Unspecified asthma, uncomplicated Category: Medical Plan: Well controlled on Trelegy and albuterol MDI. Continue current regimen. (3) Personal history of nicotine dependence: Code(s): Z87.891 - Personal history of nicotine dependence Category: Medical Plan: Results of lung cancer screening CT chest reviewed, no worrisome nodules. Continue with yearly screening, next in December of 2024. (4) Environmental allergies: Code(s): Z91.09 - Other allergy status, other than to drugs and biological substances Category: Medical Plan: Now with worsening allergic rhinitis symptoms, will switch to nasal ipratropium. Orders: Orders CT lung screening 01/08/25 Z87.891 - Personal history of nicotine dependence Medications: New ipratropium bromide administer into each nostril 2 sprays intranasal TID-QID PRN 15 mL 6RF allergy symptoms Discontinued azelastine-fluticasone 137-50 mcg/spray administer into each nostril Discontinued Reason: Doctor's Order 1 spray intranasal BID 30 days 23 grams 3RF Coding Level of Care Code Est Pt Level 4 (75123) Complex EM visit Add On G2211 Diagnoses Sarcoidosis D86.9 Asthma J45.909 Personal history of nicotine dependence Z87.891 Environmental allergies Z91.09
[2024-06-10 11:25] VITALS: BP 122/78; PULSE 97; O2SAT 97; BMI 30.6
--- OUTSIDE RECORDS SUMMARY | 2024-06-10 12:37 | XMS_ITS | Clinical Summary ---
Author Organization [facility] Address [address] [place] [address] Care Team Providers Care Painter Spray Name Role Phone Unavailable Primary Care Provider Unavailabl e Social History Tobacco Use Types Packs/Day Years Used Date Smoking Tobacco: Never Assessed Sex and Gender Information Value Date Recorded Sex Assigned at Not on file Legal Sex Male 11:58 AM EST Gender Identity Not on file Sexual Orientation Not on file Plan of Treatment Health Maintenance Due Date Last Done Comments DTaP,Tdap,and Td Vaccines (1 - Tdap) 1988 Hepatitis B Vaccines (1 of 3 - 19+ 3-dose series) 1988 Pneumococcal Vaccine: 50+ Ye ars (1 of 1 - PCV) 2019 Zoster Vaccines (1 of 2) 2019 COVID-19 Vaccine ( - 2023-2 5 season) 2023 Influenza Vaccine (#1) 2023 HIB Vaccines Aged Out No longer eligi ble based on patient's age to complete this topic HPV Vaccines Aged Out No longer eligi ble based on patient's age to complete this topic Hepatitis A Vaccines Aged Out No long er eligible based on patient's age to complete this topic IPV Vaccines Aged Out No longer eligi ble based on patient's age to complete this topic MMR Vaccines Aged Out No longer eligi ble based on patient's age to complete this topic Meningococcal ACWY Vaccine Aged Out N o longer eligible based on patient's age to complete this topic Meningococcal B Vacine Aged Out No lo nger eligible based on patient's age to complete this topic Pneumococcal Vaccine: Pediat rics (0 to 5 Years) and At-Risk Patients (6 to 64 Years) Aged Out No longer eligible b ased on patient's age to complete this topic RSV Immunization Patients Un nicola 20 months Aged Out No longer eligible b ased on patient's age to complete this topic Varicella Vaccines Aged Out No longer eligible based on patient's age to complete this topic
== END 2024-06-10 11:39 | disposition home or self-care (01) ==
PROVIDERS: PCP Internal Medicine; Visit Provider Internal Medicine Pulmonary Disease
DX: D86.9 Sarcoidosis, unspecified (principal); J45.909 Unspecified asthma, uncomplicated; Z87.891 Personal history of nicotine dependence; Z91.09 Other allergy status, other than to drugs and biological substances
CPT/HCPCS: 99214

== ENCOUNTER → 2024-06-10 11:17 | Outpatient (BNVA) | payer OTHER, SELFPAY | PROVIDERS: PCP Internal Medicine; Visit Provider Internal Medicine Pulmonary Disease ==

== ENCOUNTER 2024-09-27 12:57 | Outpatient (AMB) | payer OTHER, SELFPAY ==
[2024-09-27 13:09] VITALS: BP 136/82; PULSE 83; O2SAT 96
--- NOTE | 2024-09-27 13:09 | MHC.OFFVIS ---
Vital Signs 09/27/24 13:09 Height 6 ft 2 in Weight 233 lb 11.04 oz BMI 30.0 BP 136/82 Blood Pressure Location Rt brachial Position Sitting Pulse 83 Pulse Source Pulse Oximeter Pulse Oximetry (%) 96 Oxygen Delivery Method Room Air Intake Visit Reasons: Asthma Allergies No Known Allergies Allergy (Verified 07/01/23 09:09) HPI HPI Asthma: Details: 54-year-old gentleman, active 40+ pack-year tobacco and marijuana smoker, with underlying history of rheumatoid arthritis followed for COPD, asthma, environmental allergies, and sarcoidosis.? He continues to use Trelegy 100 and albuterol MDI, with reasonable control of his underlying symptoms. He denies recent exacerbations. His CT chest for lung cancer screening showed no worrisome nodules. His allergic rhinitis symptoms are better controlled on nasal ipratropium. [facility] Social History Patient Tobacco Use Status: Current everyday Tobacco user Tobacco use type: Cigarette Cigarette Packs Per Day: 1 Substance Use Type: Marijuana Review of Systems Const Denies daytime sleepiness, Denies excessive sweating, Denies fatigue, Denies fever(s), Denies lethargy, Denies malaise, Denies night sweats, Denies snoring and Denies weight loss Eyes Denies blurry vision and Denies itchy eyes ENT Denies nasal congestion, Denies post nasal drip, Denies sinus pain, Denies sinus pressure and Denies other ( Thrush) Card Denies chest pain, Denies pedal edema, Denies dyspnea, Denies orthopnea and Denies paroxysmal nocturnal dyspnea Resp Denies cough, Denies hemoptysis, Denies excessive phlegm production, Denies dyspnea, Denies snoring and Denies wheezing GI Denies abdominal pain and Denies heartburn Musc Denies myalgias, Denies arthralgias and Denies joint swelling Skin/Breast Denies rash Neuro Denies memory loss and Denies seizure-like activity Psych Denies abnormal sleep pattern, Denies anxiety and Denies memory loss Endo Denies excessive sweating, Denies fatigue and Denies heat intolerance Papo/Lymph Denies easy bruising Aller/Immun Denies itchy eyes, Denies seasonal rhinorrhea and Denies wheezing Physical Exam Vital Signs: Last Vital Signs Pulse 83 09/27/24 13:09 BP 136/82 09/27/24 13:09 Pulse Ox 96 09/27/24 13:09 Oxygen Delivery Method Room Air 09/27/24 13:09 BMI result Body Mass Index 30.0 Const General: no acute distress and alert Nutritional Appearance: not obese Orientation/consciousness: Other orientation findings ( oriented) HEENT Head: Yes atraumatic Eyes General: appearance normal, both eyes and all related structures Sclerae: sclerae normal EOM: EOMs intact bilaterally Neck Neck: Yes supple Lymphatic: no lymphadenopathy noted Resp Effort & Inspection: normal respiratory effort and no use of accessory muscles Auscultation: clear to auscultation bilaterally Cardio Rate: regular rate Rhythm: regular rhythm Heart sounds: no gallops, no murmurs and no rubs Skin General skin exam: other ( warm) Extrem General: No clubbing, No cyanosis and No edema Assessment & Plan Assessment & Plan (1) Asthma: Code(s): J45.909 - Unspecified asthma, uncomplicated Category: Medical Plan: Well controlled on Trelegy and albuterol MDI. Continue current regimen. (2) Environmental allergies: Code(s): Z91.09 - Other allergy status, other than to drugs and biological substances Category: Medical Plan: Significantly improved allergic rhinitis on nasal ipratropium. Continue current regimen. (3) Personal history of nicotine dependence: Code(s): Z87.891 - Personal history of nicotine dependence Category: Medical Plan: Continue yearly lung cancer screening CT chest. (4) Sarcoidosis: Code(s): D86.9 - Sarcoidosis, unspecified Category: Medical Plan: Clinically asymptomatic. Continue to monitor. Coding Level of Care Code Est Pt Level 4 (28433) Diagnoses Asthma J45.909 Environmental allergies Z91.09 Personal history of nicotine dependence Z87.891 Sarcoidosis D86.9
--- OUTSIDE RECORDS SUMMARY | 2024-09-27 14:37 | XMS_ITS | Data Portability ---
Author Organization [facility], [facility] Address [address] [place] [address] Assessment No assessment recorded. Plan of Treatment Reminders Order Date Submit Date Provider Last Modified By Organization Details Last Modified Time Details Appointments RECHECK 15 2024 08:45A M Adis Tovar PA-C Not available Not available Not available Lab None recorded . Referral None recorded . Procedures None recorded . Surgeries None recorded . Imaging None recorded . Medication Orders None recorded . Patient TargetsNo targets recorded. Patient InstructionsNo instructions recorded. Reason for Referral None Reported. Results Created Date Observation Date Name Description Value Unit Range Abnormal Flag Note LastModifiedBy Organization Detail LastModifiedTime 12/19/19 24 06/27/2019 imagi ng/di agnos tic resul t No observ ation record ed. [email or web address] Not Available 11/21 01:37:17 12/19/19 24 03/07/2019 imagi ng/di agnos tic resul t No observ ation record ed. [email or web address] Not Available 11/21 01:37:37 Result Notes None recorded. Problems Name Problem SNOMED Code Status Onset Date Resolution Date Notes Provider Name and Address Organization Details Recorded Time Effusion of joint of right knee 241564973150 104 Active 2019 Problem Code: M25.461; Problem Code Type: ICD-10; Status: 'A'; Not Available [facility] 4 11:29:41 Problem Notes None recorded. Procedures Surgical History Date Name Laterality Status Provider Name and Address Organization Details Recorded Time 5 Knee Kenalog 1cc L/R completed Adis Tovar PA-C [address], [place], [address], [facility] 09/20/2024 07:58:18 5 Knee Kenalog 1cc L/R completed Aids Tovar PA-C [address], [place], [address], [facility] 07/29/2024 07:57:51 5 Knee Kenalog 1cc L/R completed Adis Tovar PA-C [address], [place], [address], [facility] 04/28/2024 16:46:07 4 Sports Knee 4&1 completed Adis Tovar PA-C [address], [place], [address], [facility] 01/26/2024 16:31:38 4 Sports Knee 4&1 completed Adis Tovar PA-C [address], [place], [address], [facility] 10/02/2023 07:41:29 Imaging Results None recorded. Procedure Notes None recorded. Medical Equipment None Reported. Allergies No known drug allergies Vitals Date Recorded Body height Provider Name an d Address Organization Details Last Updated DateTime 07/28/2024 185.42 cm JERMAN SCHWARTZ [facility] 07/28/2024 14:34:41 Date Recorded Body height Body mass index (BMI) Body weight Provider Name and Address Organization Details Last Updated DateTime 09/20/2024 185.42 cm 31 kg/m2 349564.21 g Merlene Carcamo [facility] 09/20/2024 13:54:47 Date Recorded Body height Body mass index (BMI) Body weight Provider Name and Address Organization Details Last Updated DateTime 10/02/2023 185.42 cm 31 kg/m2 079684.21 g KALANI BARKER [facility] 10/02/2023 08:28:22 Date Recorded Body height Provider Name an d Address Organization Details Last Updated DateTime 01/26/2024 185.42 cm JERMAN SCHWARTZ [place] [facility] 01/26/2024 15:44:36 Social History None recorded. Functional Status None recorded. Mental Status None recorded. Family History Nothing Reported. Medical History No medical history recorded. Past Encounters Encounter ID Performer Location Encounter Start Date Encounter Closed Date Diagnosis/Indication Diagnosis SNOMED-CT Code Diagnosis ICD10 Code Diagnosis Note [id number] Adis Tovar PA-C [facility] [address] [place] [address] 10/02/2023 07:44:50 11/06/2023 09:45:07 Osteoarthritis of left knee joint 9873528560 20831 M17.12 [id number] [facility] [address] [place] [address] 01/26/2024 15:40:53 02/18/2024 10:39:42 Osteoarthritis of left knee joint 7994559306 69441 M17.12 [id number] DEVON [facility] [address] [place] [address] 04/28/2024 15:52:41 05/11/2024 08:14:37 Osteoarthritis of left knee joint 7193370831 56648 M17.12 [id number] DEVON [facility] [address] [place] [address] 07/28/2024 14:29:47 08/10/2024 09:46:39 Osteoarthritis of left knee joint 2791060674 60617 M17.12 [id number] DEVON [facility] [address] [place] [address] 09/20/2024 13:45:27 09/24/2024 12:39:31 Osteoarthritis of left knee joint 7892998141 43996 M17.12 Health Concerns Section Related Observation LastModified by Organization Detai ls LastModified Time None Recorded Concern Status LastModified by Organization Details LastModified Time None Recorded Advance Directives Directive None Recorded Payers Encounter Date Sequence Insurance Name Policy Number Policy Nicole Covered Member ID Nicole Member ID Guarantor Name 10/02/2023 1 [facility] [employer] [facility] (POS) Jer Last [id number] Jer Gomeznnan 01/26/2024 1 [facility] (POS) Jer Diazan [id number] Jer Cavazos Berhane 04/28/2024 1 [facility] (POS) Jer Diazan [id number] Jer Gomeznnan 07/28/2024 1 [facility] (POS) Jer Cavazos Berhane [id number] Jer Cavazos Berhane 09/20/2024 1 [facility] (POS) Jer Diazan [id number] Jer Last Notes Date Note Type Note Provider Name and Address Organization Details Recorded Time 10/02/2023 text/html I am seeing the patient today under the supervision of who was available but who did not see the patient. Chief Complaint The patient presents today for recheck of left knee osteoarthritis. Is known to have knee arthritis treated conservatively to this point with 3 months relief of symptoms. Presents today for recheck secondary to increased knee pain. Past Medical/Surgical History Reviewed today, otherwise unchanged per intake sheet. Physical Findings General Appearance: ? ? ? Well developed. ? ? ? In no acute distress. Musculoskeletal System: Knee: General/bilateral: ? ? ? No laxity of the knee. Right Knee: ? Medial aspect was tender on palpation. ? ? ? No erythema. ? ? ? No warmth. Left Knee: ? Medial aspect was tender on palpation. ? ? ? No erythema. ? ? ? No warmth. Musculoskeletal Scales: General/bilateral: ? Mild effusion noted. Neurological: ? ? ? Oriented to time, place, and person. Gait And Stance: ? ? ? Normal. Psychiatric: ? ? ? Mood was appropriate to the affect. Left knee 0-120 degrees of flexion with discomfort. Assessment ? Osteoarthritis of knee - Plan More than 50% of todays visit was spent on direct patient counseling regarding their knee condition and treatment options both operative with knee arthroplasty and non-operative, including oral medications and injection therapy. After discussion, my clinical decision was to go forth with an intra-articular cortisone injection. After explaining risks and benefits, under meticulous aseptic technique, the knee was injected with, 1cc of Kenalog 40mgs and 4 cc of Marcaine 1/4%. They tolerated the procedures well. Post injection precautions reviewed. Follow up with us in 3 months for further discussion of total knee replacement surgery versus continued conservative treatment. Adis Tovar PA-C [address], [place], [address], [facility] 10/02/2023 08:48:41 01/26/2024 text/html I am seeing the patient today under the supervision of who was available but who did not see the patient. Chief Complaint The patient presents today for recheck of left knee osteoarthritis. Is known to have knee arthritis treated conservatively to this point with 2 months relief of symptoms. Presents today for recheck secondary to increased knee pain. Past Medical/Surgical History Reviewed today, otherwise unchanged per intake sheet. Physical Findings General Appearance: ? ? ? Well developed. ? ? ? In no acute distress. Musculoskeletal System: Knee: General/bilateral: ? ? ? No laxity of the knee. Right Knee: ? Medial aspect was tender on palpation. ? ? ? No erythema. ? ? ? No warmth. Left Knee: ? Medial aspect was tender on palpation. ? ? ? No erythema. ? ? ? No warmth. Musculoskeletal Scales: General/bilateral: ? Mild effusion noted. Neurological: ? ? ? Oriented to time, place, and person. Gait And Stance: ? ? ? Normal. Psychiatric: ? ? ? Mood was appropriate to the affect. Left knee 0-120 degrees of flexion with discomfort. Assessment ? Osteoarthritis of knee - Plan More than 50% of todays visit was spent on direct patient counseling regarding their knee condition and treatment options both operative with knee arthroplasty and non-operative, including oral medications and injection therapy. After discussion, my clinical decision was to go forth with an intra-articular cortisone injection. After explaining risks and benefits, under meticulous aseptic technique, the knee was injected with, 1cc of Kenalog 40mgs and 4 cc of Marcaine 1/4%. They tolerated the procedures well. Post injection precautions reviewed. Follow up with us in 3 months for further discussion of total knee replacement surgery versus continued conservative treatment. Adis Tovar PA-C [address], [place], [address], [facility] 01/26/2024 16:31:54 04/28/2024 text/html . I am seeing the patient today under the supervision of who was available but who did not see the patient. Chief Complaint The patient presents today for recheck of left knee osteoarthritis. Is known to have knee arthritis treated conservatively to this point with 2 months relief of symptoms. Presents today for recheck secondary to increased knee pain. Past Medical/Surgical History Reviewed today, otherwise unchanged per intake sheet. Physical Findings General Appearance: ? ? ? Well developed. ? ? ? In no acute distress. Musculoskeletal System: Knee: General/bilateral: ? ? ? No laxity of the knee. Right Knee: ? Medial aspect was tender on palpation. ? ? ? No erythema. ? ? ? No warmth. Left Knee: ? Medial aspect was tender on palpation. ? ? ? No erythema. ? ? ? No warmth. Musculoskeletal Scales: General/bilateral: ? Mild effusion noted. Neurological: ? ? ? Oriented to time, place, and person. Gait And Stance: ? ? ? Normal. Psychiatric: ? ? ? Mood was appropriate to the affect. Left knee 0-120 degrees of flexion with discomfort. Assessment ? Osteoarthritis of knee - Plan More than 50% of todays visit was spent on direct patient counseling regarding their knee condition and treatment options both operative with knee arthroplasty and non-operative, including oral medications and injection therapy. After discussion, my clinical decision was to go forth with an intra-articular cortisone injection. After explaining risks and benefits, under meticulous aseptic technique, the knee was injected with, 1cc of Kenalog 40mgs and 4 cc of Marcaine 1/4%. They tolerated the procedures well. Post injection precautions reviewed. Follow up with us in 3 months for further discussion of total knee replacement surgery versus continued conservative treatment. Adis Tovar PA-C [address] [facility] [address], [place], [address], [facility] 04/28/2024 16:46:48 07/28/2024 text/html . I am seeing the patient today under the supervision of who was available but who did not see the patient. Chief Complaint The patient presents today for recheck of left knee osteoarthritis. Is known to have knee arthritis treated conservatively to this point with 2 months relief of symptoms. Presents today for recheck secondary to increased knee pain. Past Medical/Surgical History Reviewed today, otherwise unchanged per intake sheet. Physical Findings General Appearance: ? ? ? Well developed. ? ? ? In no acute distress. Musculoskeletal System: Knee: General/bilateral: ? ? ? No laxity of the knee. Right Knee: ? Medial aspect was tender on palpation. ? ? ? No erythema. ? ? ? No warmth. Left Knee: ? Medial aspect was tender on palpation. ? ? ? No erythema. ? ? ? No warmth. Musculoskeletal Scales: General/bilateral: ? Mild effusion noted. Neurological: ? ? ? Oriented to time, place, and person. Gait And Stance: ? ? ? Normal. Psychiatric: ? ? ? Mood was appropriate to the affect. Left knee 0-120 degrees of flexion with discomfort. Assessment ? Osteoarthritis of knee - Plan More than 50% of todays visit was spent on direct patient counseling regarding their knee condition and treatment options both operative with knee arthroplasty and non-operative, including oral medications and injection therapy. After discussion, my clinical decision was to go forth with an intra-articular cortisone injection. After explaining risks and benefits, under meticulous aseptic technique, the knee was injected with, 1cc of Kenalog 40mgs and 4 cc of Marcaine 1/4%. They tolerated the procedures well. Post injection precautions reviewed. Follow up with us in 3 months for further discussion of total knee replacement surgery versus continued conservative treatment. Adis Tovar PA-C [address] [place] [address] [address], [place], [address], [facility] 07/29/2024 07:58:15 09/20/2024 text/html I am seeing the patient today under the supervision of who was available but who did not see the patient. Chief ComplaintThe patient presents today for recheck of left knee osteoarthritis. Is known to have knee arthritis treated conservatively to this point with 2 months relief of symptoms. Presents today for recheck secondary to increased knee pain. Past Medical/Surgical HistoryReviewed today, otherwise unchanged per intake sheet. Physical Findings General Appearance:? ? ? Well developed. ? ? ? In no acute distress.Musculoskele lauren System:Knee:General/b ilateral: ? ? ? No laxity of the knee.Right Knee: ? Medial aspect was tender on palpation. ? ? ? No erythema. ? ? ? No warmth.Left Knee: ? Medial aspect was tender on palpation. ? ? ? No erythema. ? ? ? No warmth.Musculoskeleta l Scales:General/bilate ral: ? Mild effusion noted.Neurological:? ? ? Oriented to time, place, and person.Gait And Stance: ? ? ? Normal.Psychiatric:? ? ? Mood was appropriate to the affect. Left knee 0-120 degrees of flexion with discomfort. Assessment? Osteoarthritis of knee - PlanMore than 50% of todays visit was spent on direct patient counseling regarding their knee condition and treatment options both operative with knee arthroplasty and non-operative, including oral medications and injection therapy. After discussion, my clinical decision was to go forth with an intra-articular cortisone injection. After explaining risks and benefits, under meticulous aseptic technique, the knee was injected with, 1cc of Kenalog 40mgs and 4 cc of Marcaine 1/4%. They tolerated the procedures well. Post injection precautions reviewed. Follow up with us in 3 months for further discussion of total knee replacement surgery versus continued conservative treatment. Adis Tovar PA-C [address] [facility] [address], [place], [address], [facility] 09/20/2024 15:26:33
== END 2024-09-27 13:26 | disposition home or self-care (01) ==
LOC: HO.HPS 12:57
PROVIDERS: PCP Internal Medicine; Visit Provider Internal Medicine Pulmonary Disease
DX: J45.909 Unspecified asthma, uncomplicated (principal); Z91.09 Other allergy status, other than to drugs and biological substances; Z87.891 Personal history of nicotine dependence; D86.9 Sarcoidosis, unspecified
CPT/HCPCS: 99214

== ENCOUNTER 2024-12-16 08:41 | Outpatient (AMB) | payer OTHER, SELFPAY ==
--- NOTE | 2024-12-16 09:06 | A.OFFVIS_ITS ---
Vital Signs 12/16/24 09:07 Height 6 ft 2 in Weight 234 lb BMI 30.0 BP 122/77 Blood Pressure Location Rt brachial Position Sitting Pulse 84 Pulse Source Pulse Oximeter Pulse Oximetry (%) 96 Oxygen Delivery Method Room Air Intake Visit Reasons: Asthma Allergies No Known Allergies Allergy (Verified 07/01/23 09:09) HPI HPI Asthma: Details: 54-year-old gentleman, active 40+ pack-year tobacco and marijuana smoker, with underlying history of rheumatoid arthritis followed for COPD, asthma, enviro nmental allergies, and sarcoidosis.? He continues to use Trelegy 100 and albuterol MDI, with good control of his underlying symptoms. He denies recent exacerbations. His follow-up CT chest for lung cancer screening is pending. His allergic rhinitis symptoms are controlled on nasal ipratropium. He denie recent exacerbations. [facility] Social History (Reviewed 10/01/23 @ 08:49 by Meena Mayberry [facility]) Patient Tobacco Use Status: Current everyday Tobacco user Tobacco use type: Cigarette Cigarette Packs Per Day: 1 Substance Use Type: Marijuana Review of Systems Const Denies daytime sleepiness, Denies excessive sweating, Denies fatigue, Denies fever(s), Denies lethargy, Denies malaise, Denies night sweats, Denies snoring and Denies weight loss Eyes Denies blurry vision and Denies itchy eyes ENT Denies nasal congestion, Denies post nasal drip, Denies sinus pain, Denies sinus pressure and Denies other ( Thrush) Card Denies chest pain, Denies pedal edema, Denies dyspnea, Denies orthopnea and Denies paroxysmal nocturnal dyspnea Resp Denies cough, Denies hemoptysis, Denies excessive phlegm production, Denies dyspnea, Denies snoring and Denies wheezing GI Denies abdominal pain and Denies heartburn Musc Denies myalgias, Denies arthralgias and Denies joint swelling Skin/Breast Denies rash Neuro Denies memory loss and Denies seizure-like activity Psych Denies abnormal sleep pattern, Denies anxiety and Denies memory loss Endo Denies excessive sweating, Denies fatigue and Denies heat intolerance Papo/Lymph Denies easy bruising Aller/Immun Denies itchy eyes, Denies seasonal rhinorrhea and Denies wheezing Physical Exam Vital Signs: Last Vital Signs Pulse 84 12/16/24 09:07 BP 122/77 12/16/24 09:07 Pulse Ox 96 12/16/24 09:07 Oxygen Delivery Method Room Air 12/16/24 09:07 BMI result Body Mass Index 30.0 Const General: no acute distress and alert Nutritional Appearance: not obese Orientation/consciousness: Other orientation findings ( oriented) HEENT Head: Yes atraumatic Eyes General: appearance normal, both eyes and all related structures Sclerae: sclerae normal EOM: EOMs intact bilaterally Neck Neck: Yes supple Lymphatic: no lymphadenopathy noted Resp Effort & Inspection: normal respiratory effort and no use of accessory muscles Auscultation: clear to auscultation bilaterally Cardio Rate: regular rate Rhythm: regular rhythm Heart sounds: no gallops, no murmurs and no rubs Skin General skin exam: other ( warm) Extrem General: No clubbing, No cyanosis and No edema Assessment & Plan Assessment & Plan (1) Asthma: Code(s): J45.909 - Unspecified asthma, uncomplicated Category: Medical Plan: Well controlled on Trelegy and albuterol MDI. Continue current management. (2) Sarcoidosis: Code(s): D86.9 - Sarcoidosis, unspecified Category: Medical Plan: No recent exacerbations. Continue to monitor clinically. (3) Environmental allergies: Code(s): Z91.09 - Other allergy status, other than to drugs and biological substances Category: Medical Plan: Well controlled on nasal ipratropium. Continue current regimen. (4) Personal history of nicotine dependence: Code(s): Z87.891 - Personal history of nicotine dependence Category: Medical Plan: Results of prior CT lung cancer screening reviewed, no worrisome nodules, continue with yearly screening, next in December of 2024. Coding Level of Care Code Est Pt Level 4 (58964) Complex EM visit Add On G2211 Diagnoses Asthma J45.909 Sarcoidosis D86.9 Environmental allergies Z91.09 Personal history of nicotine dependence Z87.891
[2024-12-16 09:07] VITALS: BP 122/77; PULSE 84; O2SAT 96
--- OUTSIDE RECORDS SUMMARY | 2024-12-16 09:22 | XMS_ITS | Clinical Summary ---
Author Organization [facility] Address [address] [place] [address] Care Team Providers Care Electronic Security Specialist Name Role Phone Unavailable Primary Care Provider [...] Vaccine ( - 2023-2 5 season) 2023 Depression Screening 04/21/2024 Influenza Vaccine (#1) 2024 HIB Vaccines Aged Out No longer eligi [...] age to complete this topic Meningococcal B Vaccine Aged Out No l onger eligible based on patient's age to complete this topic RSV Immunization Patients Un nicola 20 months Aged Out No longer eligible b ased on patient's age to complete this topic Varicella Vaccines Aged Out No longer eligible based on patient's age to complete this topic
== END 2024-12-16 09:22 | disposition home or self-care (01) ==
LOC: HO.HPS 08:41
PROVIDERS: PCP Internal Medicine; Visit Provider Internal Medicine Pulmonary Disease
DX: J45.909 Unspecified asthma, uncomplicated (principal); D86.9 Sarcoidosis, unspecified; Z91.09 Other allergy status, other than to drugs and biological substances; Z87.891 Personal history of nicotine dependence
CPT/HCPCS: 99214

== ENCOUNTER 2025-01-03 07:11 | Outpatient (REF) | payer OTHER, SELFPAY ==
--- NOTE | ~2025-01-03 | CT_ITS ---
CLINICAL HISTORY: Z87.891 - Personal history of nicotine dependence CT lung cancer screening (LDCT) Comparison: 01/01/2024 Technique: Axial CT images of the chest using low-dose technique. Referring provider counseled the patient on shared decision-making for LDCT screening. Additional counseling was provided on smoking cessation. Effective radiation dose total: DLP 53.1 mGycm, CTDIvol 1.7 mGy. Findings: Lung: No new solid or semi solid lesion Coronary artery calcifications: Mild Limited upper abdomen: Unremarkable Other: None IMPRESSION: Lung-RADS 1, negative. Continue appropriate screening. This document has been electronically signed by: Austen Perez MD on 01/03/2025 08:51:34
--- OUTSIDE RECORDS SUMMARY | 2025-01-03 07:14 | XMS_ITS | Clinical Summary ---
Author Organization [facility] Address [address] [place] [address] Care Team Providers Care Art Consultant Name Role Phone Unavailable Primary Care Provider [...] 2019 Zoster Vaccines (1 of 2) 2019 Depression Screening 04/21/2024 COVID-19 Vaccine (1 - 2023-2 5 season) 2024 Influenza Vaccine (#1) 2024 HIB Vaccines Aged [...]
== END 2025-01-03 07:12 | disposition home or self-care (01) ==
LOC: HO.CT 07:11
PROVIDERS: PCP Internal Medicine; Visit Provider Internal Medicine Pulmonary Disease
DX: Z12.2 Encounter for screening for malignant neoplasm of respiratory organs (principal); Z87.891 Personal history of nicotine dependence
CPT/HCPCS: 71271

== ENCOUNTER → 2025-01-03 07:14 | Outpatient (BNV) | payer OTHER, SELFPAY | PROVIDERS: PCP Internal Medicine; Visit Provider Specialist | DX: Z87.891 Personal history of nicotine dependence (principal) | CPT/HCPCS: 71271 ==